=== PATIENT | female | born 1960 | race African-American/Black ===

== ENCOUNTER → 2016-05-08 | Outpatient (CLI) | payer BC, OTHER ==
[~2016-05-08] MED LIST: APRISO0.375 GM PO; ASACOL400 MG PO; B COMPLEX1 CA1 PO; CETIRIZINE HCL10 MG PO; DYAZIDE 37.5/251 CAP PO; MULTI VITAMIN1 EACH PO; MULTI-DAY VITAM1 TAB PO; PRAVACHOL PO; PRAVASTATIN SOD40 MG PO; TAZTIA; TAZTIA XT120 M1 PO; TRAVASTATIN; TRIAMTERENE-HCT1 TA8 PO; VITAL-D RX TABL1 TAB PO; VITAMIN D31000 UNIT PO
--- NOTE | ~2016-05-08 | MY11 ---
[facility] A Service [facility] RADIOLOGY TEXT RESULTS PATIENT: SANDRA ROGERS LOCATION: [facility] : 60 UNIT #: [id number] AGE: [address]: Orladno Solorio MD SEX: F ORDER DR: [id number] [facility] [address] [place], [place] [address] [id number] O MR#: [id number] Acc #: [id number] NAME: SANDRA ROGERS : 1960 SEX: F STUDY DATE/TIME: 05/08/2016 10:25 UNIT: [facility] ROOM: STUDY DESCRIPTION: MY Mammogram Screening Dig Nir Attending Physician: Orlando Solorio M.D. Ordering Physician: Orlando Solorio M.D. Primary Care Physician: Orlando Solorio M.D. MEDICAL IMAGING REPORT This report is preliminary unless electronic signature is present EXAM Digital screening mammogram, 05/08/2016 HISTORY 56-year-old woman, no risk elevation. Annual screening. COMPARISON 10/15/2010, 12/21/2013 FINDINGS Digital imaging of each breast was completed utilizing a two-view examination of each breast in craniocaudal and mediolateral-oblique projections. Review and interpretation of digital mammograms include a second review in conjunction with FDA-approved CAD device. There is a normal parenchymal presentation bilaterally consistent with the patient's age. There are no breast masses imaged and no parenchymal asymmetry is visualized. There are no suspicious microcalcifications and I see no focal architectural disturbance. IMPRESSION Negative screening digital mammogram. One-year followup recommended. Patients over the age of 40 are entered into a reminder system with target due date for the next mammogram. A result letter will also be sent to the patient. BIRADS: 1 Negative Dictated by... Georges Yu M.D. THIS IS AN ELECTRONICALLY VERIFIED REPORT Georges Yu M.D. at 05/08/2016 3:45 PM [facility] A Service [facility] RADIOLOGY TEXT RESULTS PATIENT: SANDRA ROGERS LOCATION: [facility] : 60 UNIT #: [id number] AGE: [address]: Orlando Solorio MD SEX: F ORDER DR: ROBINSON/lyndsay TD: 05/08/2016 15:28 JOB #: [id number] MEDICAL IMAGING REPORT Page 1 of 1 COPY
== END | disposition home or self-care (01) ==
LOC: CWCC 10:00
DX: Z12.31 Encounter for screening mammogram for malignant neoplasm of breast (principal)
CPT/HCPCS: G0202